=== PATIENT | female | born 1985 | race Caucasian/White ===

== ENCOUNTER 2022-10-03 15:25 | Emergency (ER) | payer OTHER ==
[~2022-10-03] VITALS: Ht 152.4 cm; Wt 100.9 kg
[~2022-10-03 15:25] MED LIST: NAPR500T6 PO; TRAZ-252 PO
[2022-10-03] MEDS ORDERED: ALBU18HF12 IH (15:54)
[2022-10-03] MEDS ORDERED: NORG1TAB75 PO (17:58)
[2022-10-03] MEDS ORDERED: TraMADol HCL 50 MG TABLET PO ONE (18:00)
[2022-10-03] MEDS ORDERED: KETOROLAC TROMETHAMINE 30 MG/ML VIAL IM ONE (18:00)
[2022-10-03] MEDS ORDERED: TRAM-559 PO (20:22)
[2022-10-03 20:28] VITALS: BP 124/72
== END 2022-10-03 20:30 | disposition home or self-care (01) ==
LOC: EMS 15:38
DX: M25.562 Pain in left knee (principal); M25.552 Pain in left hip; J45.909 Unspecified asthma, uncomplicated; G89.29 Other chronic pain; M54.9 Dorsalgia, unspecified; Z90.49 Acquired absence of other specified parts of digestive tract; Z98.51 Tubal ligation status
CPT/HCPCS: 99283; 73503; 96372; J1885